=== PATIENT | female | born 1930 | race Caucasian/White ===

== ENCOUNTER 2016-11-26 18:44 | Emergency (ER) | payer MEDICARE, OTHER ==
--- NOTE | ~2016-11-26 | EKG ---
PATIENT: JOSELUIS RINCON UNIT #: [id number] Ventricular Rate: 81 BPM Atrial Rate: 81 BPM P-R Interval: 158 ms QRS Duration: 126 ms Q-T Interval: 450 ms QTC Calculation(Bezet): 522 ms P [place]: 56 degrees Calculated R [place]: -32 degrees Calculated T [place]: 102 degrees Diagnosis Line: Sinus rhythm with occasional Premature ventricular Diagnosis Line: complexes Diagnosis Line: Left axis deviation Diagnosis Line: Left bundle branch block Diagnosis Line: Abnormal ECG Diagnosis Line: When compared with ECG of 17-SEP-2015 20:39, Diagnosis Line: Premature ventricular complexes are now Present Diagnosis Line: Confirmed by JENN ZAPATA MD ([id number]) on Diagnosis Line: 11/28/2016 12:03:56 PM INTERPRETING MD: JODI ESTRADA
--- NOTE | ~2016-11-26 | CR72 ---
[facility] A Service of [facility] RADIOLOGY TEXT RESULTS PATIENT: JOSELUIS RINCON LOCATION: SED : [birth year] UNIT #: [id number] AGE: [address]: Evans Hussein MD SEX: F ORDER DR: [id number] [address] [address] [id number] MR#: [id number] #: [id number] NAME: JOSELUIS RINCON : 1930 SEX: F STUDY DATE/TIME: 11/26/2016 18:51 UNIT: SED ROOM: STUDY DESCRIPTION: CR Chest Single View Portable Attending Physician: Evans Hussein M.D. Ordering Physician: Kaur Sal M.D. Primary Care Physician: Lesia Gallardo MEDICAL IMAGING REPORT This report is preliminary unless electronic signature is present. EXAM Portable chest HISTORY Aching all over, cough, fatigue, symptoms x1 week. COMPARISON 09/17/2015 FINDINGS Portable view of the chest demonstrates moderate lung volumes. Patient slightly rotated to the right. Small amount of left basilar atelectasis, no dense consolidation. There is patchy parenchymal opacity left upper lobe could represent early pneumonitis. Mild cardiomegaly and diffuse aortic atherosclerotic changes. No effusions or pneumothorax. Also noted is small amount of atelectasis right mid lung. IMPRESSION Patchy parenchymal opacity left upper lung could represent an area of developing infiltrate. Small amount of right mid lung zone atelectasis. Stable cardiomegaly and aortic atherosclerotic change. Dictated by... Tavia Olivarez M.D. THIS IS AN ELECTRONICALLY VERIFIED REPORT Tavia Olivarez M.D. at 11/27/2016 6:37 PM LYNDA/lucero TD: 11/26/2016 23:01 JOB #: [id number] [facility] A Service of [facility] RADIOLOGY TEXT RESULTS PATIENT: JOSELUIS RINCON LOCATION: SED : [birth year] UNIT #: [id number] AGE: [address]: Evans Hussein MD SEX: F ORDER DR: MEDICAL IMAGING REPORT Page 1 of 1
[~2016-11-26 18:44] MED LIST: ALBUTEROL17 GM; ANTIVERT; ARICEPT5 M1; CLOPIDOGREL75 MG; FLONASE 0.05% N16 G1; IMDUR; LANTUS100 U/ML; LASIX20 MG; LEXAPRO; LIPITOR; MUCINEX1200 MG; MULTIVITAMIN; NORVASC2.5 MG; PEPCID; PROTONIX; TOPROL XL; VASCEPA0.5 GM; VICODIN HP 10-1 EACH; VITAMIN D400 UNI2; XALATAN; XANAX0.5 M1; ZOFRAN
[2016-11-26 18:58] LABS: INFLUENZA A NEG (NEG); INFLUENZA B NEG (NEG)
[2016-11-26 19:15] LABS: BASOPHIL# 0.1 X10e3 (0-0.3); BASOPHIL% 0.6 % (0-2.5); EOSINOPHIL# 0.1 X10e3 (0-0.7); EOSINOPHIL% 0.5 % (0.0-7.0); HEMATOCRIT 33.6 % (35.0-45.0); HEMOGLOBIN 10.9 gm/dL (12.0-16.0); LYMPHOCYTE# 1.8 X10e3 (1.0-3.5); LYMPHOCYTE% 14.7 % (17.0-45.0); MEAN CELL VOLUME 90.3 FL (83-96); MEAN CORPUSCULAR HEMOGLOBIN 29.4 PG (28-34); MEAN CORPUSCULAR HGB CONC 32.5 g/dL (30-36); MEAN PLATELET VOLUME 8.3 FL (6.5-11.5); MONOCYTE# 0.9 X10e3 (0-1.0); MONOCYTE% 7.4 % (3.0-12.0); NEUTROPHIL# 9.2 X10e3 (1.5-7.1); NEUTROPHIL% 76.8 % (40-75); PLATELET COUNT 221 X10e3 (140-420); RED BLOOD COUNT 3.72 X10e (3.90-5.30); RED CELL DISTRIBUTION WIDTH 14.1 % (11.0-15.5)
[2016-11-26 19:16] LABS: DIFF IND NO
[2016-11-26 19:25] LABS: URINE SOURCE CLEAN CATCH
[2016-11-26 19:27] LABS: URINE APPEARANCE CLEAR; URINE BILIRUBIN NEG (NEG); URINE BLOOD NEG (NEG); URINE COLOR YELLOW; URINE GLUCOSE NEG (NORM); URINE KETONE NEG (NEG); URINE LEUKOCYTE ESTERASE NEG (NEG); URINE NITRATE NEG (NEG); URINE UROBILINOGEN 0.2 MG/DL (NORM)
[2016-11-26 19:28] LABS: MICRO INDICATED? NO; URINE PROTEIN NEG (NEG)
[2016-11-26 19:34] LABS: ALBUMIN SERUM 3.1 g/dL (3.5-5.0); BILIRUBIN, DIRECT 0.1 mg/dL (0.0-0.2); BILIRUBIN,INDIRECT 0.4 mg/dL (0.0-0.9); BILIRUBIN,TOTAL 0.5 mg/dL (0.2-2.0); BUN/CREATININE RATIO 16.47; CALCIUM SERUM 8.3 mg/dL (8.4-10.2); CREATININE SERUM 1.7 mg/dL (0.6-1.4); GLOM FILT RATE Estimated 26.5 mL/min (>60); POTASSIUM 3.8 mmol/L (3.5-5.1); PROTEIN TOTAL SERUM 6.9 g/dL (6.0-8.3)
[2016-11-26 19:36] LABS: POC - CKMB 2.7 ng/mL (0.0-7.9); POC - TROPONIN <0.05 ng/mL (<=0.05)
[2016-11-26 21:03] LABS: POC - CKMB 2.1 ng/mL (0.0-7.9); POC - TROPONIN <0.05 ng/mL (<=0.05)
== END 2016-11-27 00:42 ==
LOC: SED 18:44
PROVIDERS: Emergency Medicine; Student in an Organized Health Care Education/Training Program
DX: J18.1 Lobar pneumonia, unspecified organism (principal); I11.0 Hypertensive heart disease with heart failure; I50.9 Heart failure, unspecified; I25.10 Atherosclerotic heart disease of native coronary artery without angina pectoris; E11.9 Type 2 diabetes mellitus without complications; E78.5 Hyperlipidemia, unspecified; Z79.899 Other long term (current) drug therapy; Z88.6 Allergy status to analgesic agent; Z88.0 Allergy status to penicillin; Z88.8 Allergy status to other drugs, medicaments and biological substances; Z88.5 Allergy status to narcotic agent
CPT/HCPCS: 36415; 71010; 80048; 80076; 81003; 82553; 83880; 84484; 85025; 87804; 93005; 99285